=== PATIENT | female | born 1950 | race Caucasian/White ===

== ENCOUNTER 2022-01-17 08:00 | Day surgery (SDC) | payer MEDICARE ==
[2022-01-17] VITALS (10 sets, daily range): BP systolic 105–148; BP diastolic 49–84; PULSE 62–82; TEMP 97.8–98.2
[~2022-01-17] VITALS: Ht 162.6 cm; Wt 74.8 kg
[2022-01-17] MEDS ORDERED: CYMBALTA 20MG20 MG PO (08:10)
[2022-01-17] MEDS ORDERED: TENORMIN 5050 MG/TAB PO (08:10)
[2022-01-17] MEDS ORDERED: ESTRACE2 MG PO (08:10)
[2022-01-17] MEDS ORDERED: EUTHYROX88 MCG PO (08:10)
[2022-01-17] MEDS ORDERED: NEURONTIN300 MG/CAP PO (08:11)
[2022-01-17] MEDS ORDERED: ZOCOR 10MG10 MG PO (08:11)
[2022-01-17] MEDS ORDERED: XELJANZ5 MG PO (08:28)
[2022-01-17] MEDS ORDERED: PROTONIX20 MG PO (08:28)
--- NOTE | 2022-01-17 17:30 | NUR ---
Pt arrived to the floor from [place]. Pt is alert and oriented although rather drowsy. Pt does fall back asleep after she answers questions. O2 in the mid 80s on room air, placed pt on 2L per NC. O2 up to 94%. Pt daughter in the room with her. Drsg to right arm is CDI with aquacell and sling in place. Ice pack to her right shoulder. IV fluids infusing to her left arm. SCDs on bilaterally. Lung sounds clear, heart rate regular
[2022-01-17] MEDS ORDERED: TRIAMC 0.1 454 TOP (21:31)
[2022-01-17] MEDS ORDERED: VITAMIN D31000 I1 PO (21:32)
[2022-01-17] MEDS ORDERED: B-12 250 MCG (21:32)
[2022-01-17] MEDS ORDERED: ASPIRIN 81M81 MG/TA2 PO (21:32)
[2022-01-17] MEDS ORDERED: HCTZ12.5TAB PO (21:33)
[2022-01-17] MEDS ORDERED: FOLIC ACID0.4 MG PO (21:33)
--- NOTE | 2022-01-17 22:26 | NUR ---
SHIFT REPORT FROM DAYSHIFT RN. PATIENT IN BED AT ROOM ENTRY. POST OP VITALS COMPLETE. HS MEDS PER EMAR. C/O SEVERE PAIN 11/20 BUT IS DOZING IN AND OUT OF SLEEP DURING CONVERSATION. SCHEDULED TYLENOL GIVEN. PATIENT TOLERATED GENERAL DIET FOR DINNER. R ARM IN SLING. AQUACELLS TO R SHOULDER CDI. ANA TO R FA CDI. DENIES ADDITIONAL NEEDS AT THIS TIME.
[2022-01-18 03:40] VITALS: BP 148/58; PULSE 71; TEMP 97.9
[2022-01-18 06:50] LABS: HEMATOCRIT 30.8 % (37.0-47.0); HEMOGLOBIN 9.6 g/dl (12.5-16.0)
[2022-01-18 07:06] LABS: CALCIUM 8.4 mg/dL (8.4-10.2); CREATININE, serum 1.19 mg/dL (0.57-1.11); POTASSIUM 4.9 mmol/L (3.5-4.5)
[2022-01-18 07:22] VITALS: BP 138/63; PULSE 72; TEMP 97.7
--- NOTE | 2022-01-18 07:22 | NUR ---
VSS. O2 NC was off. O2 sat 91%. INT to left AC intact. Pain 8/10 in R shoulder. Reported to primary nurse. Sling to R arm in place. Ice on R shoulder. Aquacell intact on R shoulder incision, 1.5 cm drainage. SCDs on. Call light in reach.
--- NOTE | 2022-01-18 08:30 | NUR ---
Shift assessment done. Oriented x3, thought she was in [place]. Contractures to both hands.
--- NOTE | 2022-01-18 09:00 | NUR ---
Pt ambulated in halls with physical therapy with SBA. Steady gait.
--- NOTE | 2022-01-18 09:35 | NUR ---
Pt sat up in chair for about 40 minutes. Transferred steady back into bed to lay down. SCDs applied and on.
--- NOTE | 2022-01-18 09:54 | NUR ---
Initial visit; Patient thanked [facility] Technician for stopping in and offering God's blessings and to keep her in [employer] Technician's prayers.
[2022-01-18 11:15] VITALS: BP 138/46; PULSE 74; TEMP 98
[2022-01-18] MEDS ORDERED: CEPHALEXIN500 M1 PO (13:58)
[2022-01-18] MEDS ORDERED: PERCOCET 325 MG1 TA2 PO (13:59)
--- NOTE | 2022-01-18 15:22 | NUR ---
PT DISCHARGED TO HOME TODAY, PT EDUCATED ON DISMISSAL INSTRUCTIONS/MEDICATION INSTRUCTIONS/FOLLOW UP INSTRUCTIONS, PT AND PT'S DAUGHTER DENIES QUESTIONS/CONCERNS AT TIME OF DISMISSAL, PT TRANSPORTED TO EXIT PER , NO FURTHER CONCERNS
== END 2022-01-18 15:34 | disposition home or self-care (01) ==
LOC: SDCO 08:00 → SURG 17:23 → SDCO 01-18 15:34
PROVIDERS: Physician Assistant
DX: M19.011 Primary osteoarthritis, right shoulder (principal); D50.9 Iron deficiency anemia, unspecified; Z79.899 Other long term (current) drug therapy; M70.21 Olecranon bursitis, right elbow
CPT/HCPCS: OP; A4619; A9284; C1713; C1776; J0330; J0360; J0690; J1100; J1170; J1580; J2250; J2405; J2704; J3010; J7120